=== PATIENT | male | born 1985 | race Hispanic/Latino ===

== ENCOUNTER 2019-09-04 11:23 | Inpatient (IN) | payer SELFPAY ==
[~2019-09-04] VITALS: Ht 165.1 cm; Wt 69.0 kg
[~2019-09-04 11:23] MED LIST: NO HOME MEDS
--- NOTE | 2019-09-04 12:00 | NUR ---
amb to room 16 with steady gait.
[2019-09-04 12:16] LABS: HEMATOCRIT 39.6 % (39.0-50.0); HEMOGLOBIN 13.2 g/dl (14.0-18.0); IMMATURE GRANULOCYTES 0.2 % (0.0-5.0); MEAN CELL VOLUME 87.8 fL CALC (80.0-100.0); MEAN CORPUSCULAR HGB 29.3 pG CALC (26.0-32.0); MEAN CORPUSCULAR HGB CONC 33.3 g/dL CAL (32.0-36.0); NEUT# 3.87 thou/uL (1.82-7.42); RED BLOOD COUNT 4.51 mill/uL (4.70-6.10); RED CELL DISTRI WIDTH 12.1 % (11.5-15.5)
[2019-09-04 12:33] LABS: ALBUMIN 4.3 g/dL (3.2-5.0); ALKALINE PHOSPHATASE 88 u/l (38-126); BUN 13 mg/dL (9-20); BUN/CREATININE RATIO 18 (12-20 (CALC)); CARBON DIOXIDE 27 mmol/l (22-30); CHLORIDE 105 mmol/l (95-108); CREATININE 0.7 mg/dL (0.7-1.3); GFR > 60 ML/MIN (>=60 (CALC)); GFR FOR AFR.AMER. > 60 ML/MIN (>=60 (CALC)); SGOT/AST 31 u/l (17-59); SODIUM 138 mmol/l (137-146); TOTAL PROTEIN 7.9 g/dL (6.3-8.2)
[2019-09-04 12:35] LABS: ANION GAP 11 (6-22 (CALC)); BILIRUBIN, TOTAL 0.6 mg/dL (0.0-1.4); POTASSIUM 4.6 mmol/l (3.5-5.1)
--- NOTE | 2019-09-04 12:47 | NUR ---
PT TO RADIOLOGY IN STABLE CONDITION
[2019-09-04 13:24] LABS: C-REACTIVE PROTEIN 1.9 mg/dL (0-0.9)
--- NOTE | 2019-09-04 13:40 | NUR ---
PT RESTING ON STRETCHER; NO S/S OF DISTRESS NOTED; MONITORING DEVICES IN PLACE; VSS; MANOLO EDWARDS TO MONITOR
--- NOTE | 2019-09-04 14:40 | NUR ---
PT RESTING ON STRETCHER; NO S/S OF DISTRESS NOTED; PT ADVISED OF CONTINUED WAIT TIME; VSS; WILL CONTINUE TO MONITOR
[2019-09-04 14:51] LABS: URINE BILIRUBIN - DIPSTICK NEGATIVE (NEGATIVE); URINE BLOOD DIPSTICK NEGATIVE (NEGATIVE); URINE COLOR YELLOW; URINE GLUCOSE - DIPSTICK NEGATIVE (NEGATIVE); URINE KETONE TRACE mg/dL (NEGATIVE); URINE LEUK ESTERASE NEGATIVE (NEGATIVE); URINE NITRITE - DIPSTICK NEGATIVE (Negative); URINE PH 6.5 (4.5-8.0); URINE PROTEIN - DIPSTICK NEGATIVE (NEG-TRACE); URINE SPECIFIC GRAVITY 1.015; URINE UROBILINOGEN - DIPSTICK 0.2 E.U./dL (0.2)
--- NOTE | 2019-09-04 15:40 | NUR ---
PT RESTING ON STRETCHER; NO S/S OF DISTRESS NOTED; VSS; WILL CONTINUE TO MONITOR
--- NOTE | 2019-09-04 16:40 | NUR ---
[facility]SE AT BEDSIDE; ORDERS RECIEVED, VSS; ADVISED OF CONTINUED WAIT TIME FOR ADMISSION
--- NOTE | 2019-09-04 17:40 | NUR ---
ATTEMPTED TO CALL REPORT TO WENCESLAO; WILL CALL WHEN AVAILABLE
--- NOTE | 2019-09-04 18:10 | NUR ---
Admission Note Report Given to: LINDA BILLY Transported by: X Wheelchair Stretcher Transported with: X Nurse Transporter X Patent IV O2 X Professor Of Sport Management Location: ICU X [facility]
--- NOTE | 2019-09-04 18:25 | NUR ---
PT ARRIVED TO MED/SURG ROOM 282 IN STABLE CONDITION VIA WHEELCHAIR ACCOMPANIED BY ZHENG YEE;PT AMBULATED TO BEDSIDE WITH A STEADY GAIT;VS AND WT OBTAINED BY DAWIT ESPARZA;PT NOTED TO BE MOSTLY YAKUT SPEAKING, TRANSLATION PROVIDED BY ZHENG JOAQUIN;PT A&O X3, ORIENTED TO ROOM AND CALL LIGHT SYSTEM;RESPIRATIONS EVEN AND UNLABORED ON RA;PT DENIES ANY CURRENT PAIN OR NEEDS;TELE MONITORING IN PLACE;#20G TO LAC FLUSHED AND PATENT,NS STARTED AT 100ML/HR PER ORDER;PT EDUCATED ON AIR/CONTACT PRECAUTIONS DUE TO COVID19 DX AND VERBALIZES UNDERSTANDING;FALL AND ALLERGY BAND APPLIED TO LEFT ARM;DINNER TRAY PROVIDED;PT DENIES ANY ADDITIONAL NEEDS AND IS ENCOURAGED TO CALL FOR ASSISTANCE IF NEEDED;FALL PRECAUTIONS IN PLACE WITH BED IN THE LOWEST POSITION AND CALL LIGHT IN REACH;WILL CONTINUE TO MONITOR
[2019-09-04 18:30] VITALS: BP 122/81
--- NOTE | 2019-09-04 20:30 | NUR ---
PT RESTING IN BED, ALERT AND ORIENTED. RESPIRATIONS EVEN AND UNLABORED ON RA. LUNGS SOUND DIMINISHED. PEDAL PULSES ARE STRONG. PT DENIES ANY PAIN OR DISCOMFORT AT THIS TIME. TELE IN PLACE. CALL [facility] WITHIN REACH. WILL CONTINUE TO MONITOR.
[2019-09-05] VITALS: BP 117/75
--- NOTE | 2019-09-05 00:12 | NUR ---
PT RESTING IN BED. NO S/S OF DISTRESS AT THIS TIME. SAFETY PRECAUTIONS IN PLACE. WILL CONTINUE TO MONITOR.
[2019-09-05 04:00] VITALS: BP 119/80
--- NOTE | 2019-09-05 04:35 | NUR ---
PT RESTING IN BED. RESPPIRATIONS EVEN AND UNLABORED ON RA. NO S/S OF DISTRESS AT THIS TIME. SAFETY PRECAUTIONS IN PLACE. WILL CONTINUE TO MONITOR.
--- NOTE | 2019-09-05 07:10 | NUR ---
REPORT RECEIVED FROM ZHENG JUAREZ.
--- NOTE | 2019-09-05 08:00 | NUR ---
PT RESTING IN SEMI FOWLERS POSITION,A&O X3;PT NOTED TO BE MOSTLY [place]GENT[place] SPEAKING BUT DOES VERBALIZE UNDERSTANDING TO [place] AT THIS TIME;VS OBTAINED AND ASSESSMENT COMPLETED;PT DENIES ANY CURRENT PAIN OR DISCOMFORTS,PAIN SCALE AND REPORTING EDUCATED;RESPIRATIONS EVEN AND UNLABORED ON RA,CLEAR LUNG SOUNDS NOTED;ABDOMEN SOFT ON PALPATION AND ACTIVE IN ALL 4 QUADRANTS;STRONG PEDAL PULSES;SKIN INTACT;TELE MONITORING IN PLACE;#20G TO LAC INFUSING NS @ 100ML/HR PER ORDER,SITE APPEARS HEALTHY;PT REMAINS IN AIR/CONTACT ISOLOATION DUE TO COVID19 DX;PT DENIES ANY ADDITIONAL NEEDS AT THIS TIME AND IS ENCOURAGED TO CALL FOR ASSISTANCE IF NEEDED;FALL PRECAUTIONS IN PLACE WITH BED IN THE LOWEST POSITION AND CALL LIGHT IN REACH;WILL CONTINUE TO MONITOR
[2019-09-05 08:06] VITALS: BP 127/79
[2019-09-05 10:45] VITALS: BP 119/81
--- NOTE | 2019-09-05 11:40 | NUR ---
PT RESTING IN SEMI FOWLERS POSITION;RESPIRATIONS EVEN AND UNLABORED ON RA;PT DENIES ANY CURRENT PAIN OR NEEDS;TELE MONITORING IN PLACE;IV FLUIDS CONTINUE TO INFUSE WELL TO LAC;TRANSLATION PROVIDED BY ONDINA SOARES;PT VERBALIZES UNDERSTANDING OF PLANS TO D/C HOME LATER THIS AFTERNOON;PT DENIES ANY ADDITIONAL NEEDS AND IS ENCOURAGED TO CALL FOR ASSISTANCE IF NEEDED;CALL LIGHT IN REACH;WILL CONTINUE TO MONITOR
[2019-09-05] MEDS ORDERED: ZITHROMAX250 MG PO ×2 (11:46→12:06)
--- NOTE | 2019-09-05 13:20 | NUR ---
ALL DISCHARGE INSTRUCTIONS PROVIDED AT THIS TIME WITH TRANSLATION BY ONDINA SOARES;PT INSTRUCTED TO TAKE ZITHRO DIRECTED,HARD SCRIPT PROVIDED;MAINTAIN SOCIAL DISTANCING, GOOD HAND AND COUGH HYGIENE AND TO F/U WITH HEALTH DEPARTMENT AND PCP FOR FURTHER TESTING BEFORE RETURNING BACK TO WORK; PT VERBALIZES UNDERSTANDING;RELEASE FOR WORK PROVIDED, IV SITE REMOVED WITH CATHETER INTACT AND TELE MONITORING D/C;PT DENIES ANY ADDITIONAL QUESTIONS OR NEEDS;WHEELCHAIR TO BE PROVIDED FOR D/C HOME;PT TO TRANSPORT SELF HOME.
--- NOTE | 2019-09-05 13:27 | NUR ---
Discharge instructions given. Patient verbalizes understanding of same. Discharged in stable condition via Wheelchair to Home with *Other. All belongings sent with pt. PT TRANSPORTED TO [facility] IN STABLE CONDITION VIA WHEELCHAIR ACCOMPANIED BY WRITTER FROM D/C HOME.PT TO TRANSPORT SELF HOME. ALL BELONGINGS LEFT WITH PT.
--- NOTE | 2019-09-07 11:50 | NUR ---
Patient notified of Positive Covid results by Royce Hoskins, mortgage loan originator.
== END 2019-09-05 13:29 | disposition home or self-care (01) | DRG 177 ==
LOC: ED 11:23 → ED-I 14:40 → ED 15:01 → ED-I 15:02 → MS2 15:18
PROVIDERS: Emergency Medicine; ADMIT Internal Medicine; ATTEND Internal Medicine
DX: U07.1 COVID-19 (principal); J12.89 Other viral pneumonia; J02.0 Streptococcal pharyngitis; F17.200 Nicotine dependence, unspecified, uncomplicated
CPT/HCPCS: J1650; Q9967